=== PATIENT | female | born 1950 | race Asian ===

== ENCOUNTER 2022-05-26 10:36 | Emergency (ER) | payer OTHER ==
[~2022-05-26] VITALS: Ht 157.5 cm; Wt 53.5 kg
[2022-05-26 10:36] VITALS: BP_SYST 139
--- NOTE | 2022-05-26 11:12 | NUR ---
REPORT RECEIVED FROM JOSÉ ARSHAD,CARE ASSUMED, PT BROUGHT TO ROOM AND PLACED ON MONITOR. PT ASSESSED. BLOOD DRAWN BY LAB. NOTIFIED OF PT STATUS
--- NOTE | 2022-05-26 11:20 | NUR ---
ER at bedside examining patient.
--- NOTE | 2022-05-26 11:40 | NUR ---
EKG DONE BY TECH
[2022-05-26 12:07] LABS: ANION GAP 4 (5-15); CALCIUM 8.6 mg/dL (8.4-11.0); CHLORIDE 103 mmol/L (98-107); CREATININE 0.99 mg/dL (0.55-1.30); GLUCOSE 98 mg/dL (70-99); POTASSIUM 4.2 mmol/L (3.5-5.1); UREA NITROGEN, BLOOD 11 mg/dL (8-21)
[2022-05-26 12:08] LABS: BASOPHILS % (AUTO) 0.8 % (0.0-2.0); EOSINOPHILS # (AUTO) 0.1 K/uL (0.0-0.4); EOSINOPHILS % (AUTO) 1.2 % (0.0-4.0); HEMATOCRIT 35.5 % (36-48); LYMPHOCYTES # (AUTO) 1.5 K/uL (1.0-5.5); LYMPHOCYTES % (AUTO) 28.9 % (20.5-51.5); MEAN CORPUSCULAR HEMOGLOBIN 31 pg (27-31); MEAN CORPUSCULAR HGB CONC 34 % (32-36); MEAN CORPUSCULAR VOLUME 92 fL (79.0-98.0); MONOCYTES # (AUTO) 0.5 K/uL (0.0-1.0); MONOCYTES % (AUTO) 9.3 % (1.7-9.3); NEUTROPHILS # (AUTO) 3.2 K/uL (1.8-7.7); NEUTROPHILS % (AUTO) 59.8 % (40.0-70.0); PLATELET COUNT (AUTO) 202 K/uL (130-430); RED BLOOD CELL COUNT(AUTO) 3.87 MIL/uL (4.2-6.2); RED CELL DISTRIBUTION WIDTH 13.8 % (9.0-15.0); WHITE BLOOD COUNT (AUTO) 5.3 K/uL (4.8-10.8)
--- NOTE | 2022-05-26 12:10 | NUR ---
PT RESTING QUIETLY, RESP EASY MM PINK, NO APPARENT DISTRESS, STATES FEELING BETTER
[2022-05-26 12:15] LABS: ALANINE AMINOTRANSFERASE 26 U/L (12-78); ALBUMIN 3.5 g/dL (3.4-4.8); ASPARTATE AMINOTRANSFERASE 26 U/L (10-37); TOTAL BILIRUBIN 0.5 mg/dL (0.0-1.0)
--- NOTE | 2022-05-26 13:12 | NUR ---
PT AMBULATED TO BR WITHOUT DIFF, NO CHANGE IN STATUS, RESP EASY, DENIES CO. 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
--- NOTE | 2022-05-26 13:30 | NUR ---
Patient given written and verbal discharge instructions and verbalizes understanding. ER MD discussed with patient the results and treatment provided. Patient in stable condition. ID arm band removed. Patient educated on pain management and to follow up with PMD. Pain Scale . Opportunity for questions provided and answered. Medication side effect fact sheet provided.
[2022-05-26 13:35] VITALS: BP_SYST 132
== END 2022-05-26 13:30 | disposition home or self-care (01) ==
LOC: SED 10:36
DX: R00.1 Bradycardia, unspecified (principal); F41.9 Anxiety disorder, unspecified; K59.00 Constipation, unspecified; R00.2 Palpitations; Z79.899 Other long term (current) drug therapy
CPT/HCPCS: 36415; 71045; 80053; 84484; 85025; 93005; 99285